=== PATIENT | female | born 1995 | race Caucasian/White ===

== ENCOUNTER 2025-01-01 20:59 | Emergency (ER) | payer BC, SELFPAY ==
--- OUTSIDE RECORDS SUMMARY | 2024-11-27 11:40 | XMS_ITS | Encounter Summary ---
Author Organization [facility] Address [address] [place] [address] Phone Care Team Providers Care Child Welfare Caseworker Name Role Phone Greg Fontaine CLOTH BALER Primary Care Provider Unavaila ble Reason for Visit * Reason Comments Hypothyroidism Encounter Details Date Type Department Care Team (Late st Contact Info) Description 11/27/2024 9:40 AM [facility] Office Visit [facility] [address] [place] [address] Melissa Bueno FNP [address] [place], [place] [id number] Other specified hypothyroidism (Primary Dx) Social History Tobacco Use Types Packs/Day Years Used Date Smoking Tobacco: Never Smokeless Tobacco: Never Tobacco Cessation:Counseling Given: Not Answered Alcohol Use Standard Drinks/Week Comments Never 0 (1 standard drink = 0.6 oz pur e alcohol) Humiliation, Afraid, Rape, and Kick questionnair e Answer Date Recorded Within the last year, have y ou been afraid of your partner or ex-partner? No 07/16/2024 Within the last year, have y ou been humiliated or emotionally abused in other ways by your partner or ex-partner? No Within the last year, have y ou been kicked, hit, slapped, or otherwise physically hurt by your partner or ex-partner? No 07/16/2024 Within the last year, have y ou been raped or forced to have any kind of sexual activity by your partner or ex-partner? No 07/16/2024 AUDIT-C Answer Date Recorded Q1: How often do you have a drink containing alcohol? Never 07/16/2024 Q2: How many drinks containi ng alcohol do you have on a typical day when you are drinking? Patient does not drink Q3: How often do you have si x or more drinks on one occasion? Never 07/16/2024 PHQ-2 Answer Date Recorded Patient Health Questionnaire-2 Score 0 11/12/2024 PHQ-9 Answer Date Recorded Patient Health Questionnaire-9 Score 1 11/12/2024 Housing Stability Vital Sign Answer Ross e Recorded In the last 12 months, was t here a time when you were not able to pay the mortgage or rent on time? No 07/16/2024 In the past 12 months, how m any times have you moved where you were living? 0 07/16/2024 At any time in the past 12 m [place], were you homeless or living in a group home (including now)? No 07/16/2024 Comments No Sex and Gender Information Value Date Recorded Sex Assigned at Female 11/16/2022 10:35 AM MST Legal Sex Female 10:08 AM MST Gender Identity Female 11/16/2022 10:35 AM MST Sexual Orientation Straight 11/16/2022 10 :35 AM MST documented as of this encounter Progress Notes * Melissa Bueno, CLOTH BALER - 11/27/2024 9:40 AM MST Subjective Patient ID: Ashely Hamilton is a 28 y.o. female who presents for Hypothyroidism. Attestation Ambient Consent : Patient/Guardian agrees to audio recording of this encounter for the purposes of computer assisted note taking and documentation. HPI History of Present Illness Presents via to request medication refills. Needs refill on Levothyroxine, currently taking 50 mcg daily. Labs have been stable. Denies any other concerns. Review of Systems Objective Visit Vitals LMP 11/23/2024 (Approximate) OB Status Having periods Smoking Status Never Physical Exam Constitutional: General: She is not in acute distress. Appearance: Normal appearance. Pulmonary: Effort: Pulmonary effort is normal. Comments: Speaking in full & clear sentences without any visible respiratory distress. Neurological: Mental Status: She is alert and oriented to person, place, and time. Mental status is at baseline. Psychiatric: Mood and Affect: Mood normal. Behavior: Behavior normal. Thought Content: Thought content normal. Assessment/Plan Diagnoses and associated orders for this visit: 1. Other specified hypothyroidism Assessment & Plan: Thyroid condition is stable at goal Last TSH: 1.02 on 07/16/2024. Continue current medications: Levothyroxine 50 mcg daily Monitor labs once a year unless new symptoms arise. Orders: - levothyroxine (Synthroid, Levoxyl) 50 MCG tablet; Take ONE tablet by mouth every day. Assessment/Plan No follow-ups on file. Telemedicine Attestation Statements Provider Location: [facility] Patient Location: [facility] visit type: Video I attest that I am at a secure, dedicated location for this telemedicine visit. The patient verbally consents to receiving health care via telehealth and understands the risks and benefits. Visit Duration: 0s documented in this encounter Miscellaneous Notes * Assessment & Plan Note - RENEE Berry - 11/27/2024 9:50 AM MSTAssociated Problem(s): Other specified hypothyroidism Thyroid condition is stable at goal Last TSH: 1.02 on 07/16/2024. Continue current medications: Levothyroxine 50 mcg daily Monitor labs once a year unless new symptoms arise. documented in this encounter Plan of Treatment Upcoming Encounters Date Type Department Care Team (Late st Contact Info) Description 01/07/2025 11:30 AM MST [facility] Visit [facility] [address] [place] [address] Pauly Holguin PMHNP [address] [place] [address] documented as of this encounter Visit Diagnoses Diagnosis Other specified hypothyroidism- Primary documented in this encounter Additional Health Concerns Assessment Noted Time PHQ-9 Depression Total Score: 1 11/13/19 25 12:15 PM MST documented as of this encounter Care Teams Child Welfare Caseworker Relationship Specialty Start Date End Date Greg Fontaine FNP PCP - General 07/18/24 11/28/24 documented as of this encounter
[2025-01-01 21:17] VITALS: BP 124/67; PULSE 82; RESP 18; TEMP 37; O2SAT 100; BMI 23.7
--- OUTSIDE RECORDS SUMMARY | 2025-01-01 21:53 | XMS_ITS | Clinical Summary ---
Author Organization [facility] Address [address] [place] [address] Phone Care Team Providers Care Loader Unloader Name Role Phone Melissa Bueno RENEE Primary Care Provider [phone] Allergies Active Allergy Reactions Criticality Noted Date Comments Ambrosia Artemisiifolia (Ragweed) Skin Test Itching,Shortness of breath High 08/09/2022 Haloperidol Swelling High 03/25/2022 Throat swelling Mixed Ragweed Itching 07/16/2024 Medications Multiple Vitamins-Minerals (Multi Adult Gummies) chewable tablet Active cetirizine (ZyrTEC) 10 MG tablet Take by mouth every day. Active Cholecalciferol (Vitamin D) 50 MCG (1999 UT) capsule Ac tive docusate sodium (Stool Softener) 250 MG capsule Activ e lamoTRIgine (LaMICtal) 200 MG tabletIndications: Bipolar 1 disorder, depressed, full remission (CMS/HCC) (HCC) (CMS/HCC) Take ONE tablet by mouth 2 (two) times every day in the morning and in the evening. 60 tablet 3 5 03/12/20 25 Active Turmeric (QC TUMERIC COMPLEX PO) Active levothyroxine (Synthroid, Levoxyl) 50 MCG tabletIndications: Other specified hypothyroidism Take ONE tablet by mouth every day. 90 tablet 2 5 11/28/19 26 Active ARIPiprazole (Abilify) 10 MG tabletIndications: Bipolar 1 disorder, depressed, full remission (CMS/HCC) (HCC) (CMS/HCC) Take ONE tablet by mouth every night at bedtime. 30 tablet 3 5 04/17/20 25 Active Abilify 10 MG tabletIndications: Bipolar 1 disorder, depressed, full remission ([facility]) ([facility]) ([facility]) Take ONE tablet by mouth every night at bedtime. 30 tablet 3 5 12/19/19 25 Discontin ued(Other ) Active Problems Problem Noted Date Diagnosed Date Bipolar 1 disorder, depresse d, full remission ([facility]) ([facility]) 07/16/2024 Assessment & Plan (11/12/2024 1:21 PM [facility]): Ashely Haimlton is a 28 y.o. female with a history of Bipolar DO. Current presentation is diagnostically consistent with Bipolar 1 DO, in full remission. Last episode Jun 2023. History of sleep deficit (~2hrs/night) x ~ 5 days, talkative/pressured speech, disorganized thoughts, and risk taking behaviors, has required hospitalization twice for re-stabilization. Currently stable on Lamotrigine 200mg BID and Abilify 10mg at bedtime for Bipolar DO. Risks vs benefits discussed. Education provided. Will continue at this time. -Discussed risk of rash (mago's johnsons), Patient denies S/Sx of rash. Patient understands the importance of medication compliance and if misses 1-2 days in a row will need to restart medication. --During 1st was on Lamotrigine 200mg BID and Abilify 5mg. No complications with . --- Provided patient [id number] fact sheets for both Lamotrigine and Abilify as patient may consider in the future. Condition is Stable Continue current prescribed medications Condition will be reassessed plan; follow-up 2 weeks/4weeks/3months: at the next regular appointment Assessment & Plan (07/16/2024 3:02 PM [facility]): - Current medications include Abilify, Lamotrigine, and [place]. - Patient is interested in transferring mental health services to this practice. - Referral to [facility] will be processed for continued psychiatric care. Other specified hypothyroidism 09/15/2022 Assessment & Plan (11/27/2024 9:50 AM [facility]): Thyroid condition is stable at goal Last TSH: 1.02 on 07/16/2024. Continue current medications: Levothyroxine 50 mcg daily Monitor labs once a year unless new symptoms arise. Assessment & Plan (07/16/2024 3:02 PM [facility]): - Continue Levothyroxine 50 mcg daily. - Patient will have labs drawn today to assess thyroid function. - Will order a one-month supply of Levothyroxine pending lab results. Resolved Problems Problem Noted Date Diagnosed Date Resolved Date Chorioamnionitis 01/31/2023 11/27/2024 (normal spontaneous vaginal delivery) 01/30/2023 11/27/2024 Encounters Date Type Department Care Team Description 12/18/2024 Orders Only [facility] [address] [place] [phone] Pauly Holguin PMHNP Bipolar 1 disorder, depressed, full remission (CMS/HCC) (HCC) (CMS/HCC) (Primary Dx) 11/27/2024 9:40 AM [facility] Office Visit [address] [place] [address] Melissa Bueno, RENEE Other specified hypothyroidism (Primary Dx) 11/27/2024 Travel 11/12/2024 12:30 PM [facility] Office Visit [facility] [place] [phone] Pauly Holguin PMHNP Bipolar 1 disorder, depressed, full remission (CMS/HCC) (HCC) (CMS/HCC) (Primary Dx) 11/12/2024 Travel 11/12/2024 Telephone [facility] [address] [place] [phone] Ariadna Parnell -COOR OF CARE from Last 3 Months Immunizations Immunization Administration Dates Next Due Tdap 11/09/2022 Social History Tobacco Use Types Packs/Day Years [...] any time in the past 12 m [facility], were you homeless or living in a jail (including now)? No 07/16/2024 Comments No Sex and Gender Information Value Date Recorded Sex Assigned at Female 11/16/2022 10:35 AM [facility] Legal Sex Female 10:08 AM [facility] Gender Identity Female 11/16/2022 10:35 AM [facility] Sexual Orientation Straight 11/16/2022 10 :35 AM [facility] Last Filed Vital Signs Vital Sign Reading Time Taken Comments Blood Pressure 110/70 07/16/2024 2:17 PM [facility] Pulse 81 07/16/2024 2:17 PM [facility] Temperature 37.2 C (98.9 F) 07/16/2024 2:17 PM MST Respiratory Rate - - Oxygen Saturation 98% 07/16/2024 2:17 PM MST Inhaled Oxygen Concentration - - Weight 62.6 kg (137 lb 14.4 oz) 07/16/2024 2:17 PM [facility] Height 162.6 cm (5' 4) 07/16/2024 2:17 PM MST Body Mass Index 23.67 07/16/2024 2:17 PM [facility] Plan of Treatment Upcoming Encounters Date Type Department Care Team (Late st Contact Info) Description 01/07/2025 11:30 AM [facility] Office Visit [facility] [address] [place] [address] Pauly Holguin, PMHNP [address] [place] [address] Health Maintenance Due Date Last Done Comments Hepatitis C Screening 12/07/2015 COVID-19 Vaccine (2023-2 5 season) 2024 Influenza Vaccine (Season Ended) 2025 Annual Preventive Visit 07/16/2025 07/16/2024 RPR Screening 07/16/2025 07/16/2024, 01/29/2023 Pap Smear 08/09/2025 08/09/2022 DTaP/Tdap/Td Vaccines (2 - T d or Tdap) 11/09/2032 11/09/2022 HIV Screening Completed 08/09/2022 Tobacco Screening Completed 11/27/2024 HIB Vaccines Aged Out No longer eligi ble based on patient's age to complete this topic IPV Vaccines Aged Out No longer eligi ble based on patient's age to complete this topic Meningococcal B Vaccine Aged Out No l onger eligible based on patient's age to complete this topic Meningococcal Vaccine Aged Out No ginny joyce eligible based on patient's age to complete this topic Rotavirus Vaccines Aged Out No longer eligible based on patient's age to complete this topic Procedures Procedure Name Priority Date/Time Associated Diagnosis Comments RPR SCREEN W/RFX TITER & TPPA Routine 07/16/2024 2:57 PM [facility] Routine screening for STI (sexually transmitted infection) from Last 3 Months or Most Recently Relevant to Health Maintenance Results * RPR Screen w/rfx Titer & TPPA (07/16/2024 2:57 PM MST) RPR Nonreactive Nonreactive 07/17/2024 9:49 PM [facility] [employer] [place] Blood Venous blood / Unknown Venipuncture / Unknown 07/16/2024 2:57 PM MST 07/16/2024 2:57 PM MST Narrative KEVIN BELLO ([place]LETTE) - 07/17/2024 9:49 PM MST Fasting: No Performing Organization Information: Site ID: [id number] Name: [facility] Address: [address] [place] [address] Director: Nita Burgess us Greg Fontaine [facility] BLOOD ORDERABLES Final Resu lt [facility] [email or web address] [address] [place] [address], [employer] [place] [address] [place] [address], from Last 3 Months or Most Recently Relevant to Health Maintenance Insurance [facility] Care Teams Loader Unloader Relationship Specialty Start Date End Date Melissa Bueno FNP [address] [place], [place] [id number] PCP - General 11/29/24 07/10/99
--- OUTSIDE RECORDS SUMMARY | 2025-01-01 21:53 | XMS_ITS | Clinical Summary ---
Author Organization [facility] r Address [address] [place] [address] Care Team Providers Care Monkey Trainer Name Role Phone Pcp, Pcp - No MD Primary Care Provider Unavailab le Allergies No known active allergies Medications lamoTRIgine (LAMICTAL) 200 MG tablet Take 200 mg by mouth twice a day. 01/06/2023 Active cholecalciferol (VITAMIN D3) 25 MCG (1000 UT) tablet Take 25 mcg by mouth. 03/25/2022 Active levothyroxine (SYNTHROID, LEVOTHROID) 25 MCG tabletIndication s: (normal spontaneous vaginal delivery) Take 1 tablet by mouth one-half hour before breakfast. 30 tablet 02/01/2023 Active Active Problems Problem Noted Date Diagnosed Date Chorioamnionitis 01/31/2023 01/3001/30/2023 Social History Tobacco Use Types Packs/Day Years Used Date Smoking Tobacco: Never Smokeless Tobacco: Never Tobacco Cessation:Counseling Given: Not Answered Utilities Answer Date Recorded In the past 12 months has e Trove, gas, oil, or water [employer] threatened to shut off services in your home? No 01/29/2023 PHQ-2 Answer Date Recorded PHQ-2 Score 0 02/07/2023 Hunger Vital Sign Answer Date Recorded Within the past 12 months, y ou worried that your food would run out before you got the money to buy more. Never true 01/30/20 23 Within the past 12 months, t he food you bought just didn't last and you didn't have money to get more. Never true 01/29/2023 PRAPARE - Transportation Answer Date Re corded In the past 12 months, has l ack of transportation kept you from medical appointments or from getting medications? No 01/09 In the past 12 months, has l ack of transportation kept you from meetings, work, or from getting things needed for daily living? No 01/29/2023 Housing Stability Vital Sign Answer Ross e Recorded In the last 12 months, was t here a time when you were not able to pay the mortgage or rent on time? No 01/29/2023 Number of Places Lived in the Last Year Not on f ile 01/29/2023 In the last 12 months, was t here a time when you did not have a steady place to sleep or slept in a fpc (including now)? No 01/29/2023 Domestic Violence Screen Answer Date Re corded Are you in a relationship in which you have been physically hurt? Unrecognized value 01/31/2023 Are you in a relationship in which you have been verbally threatened or felt emotionally controlled? Unrecognized value 01/31/2023 Comments No Sex and Gender Information Value Date Recorded Sex Assigned at Female 01/28/2023 7:04 PM [facility] Legal Sex Female 6:37 PM MST Gender Identity Female 01/28/2023 7:04 PM MST Sexual Orientation Not on file Last Filed Vital Signs Vital Sign Reading Time Taken Comments Blood Pressure 96/59 01/31/2023 12:24 PM MST Pulse 73 01/31/2023 12:24 PM MST Temperature 36.8 C (98.2 F) 01/31/2023 12:24 PM MST Respiratory Rate 18 01/31/2023 12:24 PM MST Oxygen Saturation 98% 01/31/2023 12:24 PM MST Inhaled Oxygen Concentration - - Weight 81 kg (178 lb 9.2 oz) 01/29/2023 8:40 PM MST Height 162.6 cm (5' 4) 01/29/2023 8:40 PM MST Body Mass Index 30.65 01/29/2023 8:40 PM MST Plan of Treatment Health Maintenance Due Date Last Done Comments Hepatitis B (1 of 3 - 19+ 3- dose series) 2016 Cervical Cancer Screen Stand malina 3 Year Repeat 2018 COVID-19 Vaccine ( - 2023-2 5 season) 2024 Depression Screening 07/11/2024 Influenza (Season Ended) 2025 DTaP/Tdap/Td (2 - Td or Tdap) 11/09/2032 11/09/2022 RSV Vaccines (1 - 1-dose 75+ series) 2072 HPV(Human Papilloma Virus) Aged Out N o longer eligible based on patient's age to complete this topic Hepatitis A Aged Out No longer eligi ble based on patient's age to complete this topic Pneumococcal <50 yr Aged Out No longe r eligible based on patient's age to complete this topic Insurance [facility] MEDICA Advance Directives For more information, please contact: [phone] * Full Code (Latest Code Status on File) Date Activated Date Inactivated Comments 01/30/2023 4:54 PM 01/31/2023 7:06 PM * Full Code Date Activated Date Inactivated Comments 01/29/2023 8:46 PM 01/30/2023 4:54 PM Care Teams Monkey Trainer Relationship Specialty Start Date End Date Pcp, Pcp - Linda, PCP - General 01/29/23
--- OUTSIDE RECORDS SUMMARY | 2025-01-01 21:53 | XMS_ITS | Encounter Summary ---
Author Organization [facility] Address [address] [place] [address] Phone Care Team Providers Care Body Art Technician Name Role Phone Melissa Bueno RENEE Primary Care Provider [phone] Encounter Details Date Type Department Care Team (Late st Contact Info) Description 12/18/2024 Orders Only [facility] [address] [place] [address] Pauly Holguin, PMHNP [address] [place] [address] Bipolar 1 disorder, depressed, full remission (CMS/HCC) (HCC) (CMS/HCC) (Primary Dx) Social History Tobacco Use Types Packs/Day Years Used Date Smoking Tobacco: Never Smokeless Tobacco: Never Alcohol Use Standard Drinks/Week Comments Never 0 [...] any time in the past 12 m [facility], were you homeless or living in a penitentiary (including now)? No 07/16/2024 Comments No Sex and Gender Information Value Date Recorded Sex Assigned at Female 11/16/2022 10:35 AM MST Legal Sex Female 10:08 AM MST Gender Identity Female 11/16/2022 10:35 AM MST Sexual Orientation Straight 11/16/2022 10 :35 AM MST documented as of this encounter Plan of Treatment Upcoming Encounters Date Type Department Care Team (Late st Contact Info) Description 01/07/2025 11:30 AM [facility]ST Office Visit [facility] [address] [place] [address] Pauly Holguin, LISAHNP [address] [place] [address] documented as of this encounter Visit Diagnoses Diagnosis Bipolar 1 disorder, depressed, full remission (CMS/HCC) (HCC) (CMS/HCC)- Primary documented in this encounter Additional Health Concerns Assessment Noted Time PHQ-9 Depression Total Score: 1 11/13/19 25 12:15 PM MST documented as of this encounter Care Teams Body Art Technician Relationship Specialty Start Date End Date Melissa Bueno FNP [address] [place] [address] PCP - General 11/29/24 07/10/99 documented as of this encounter
--- OUTSIDE RECORDS SUMMARY | 2025-01-01 21:53 | XMS_ITS | Encounter Summary ---
Author Organization [facility] Address [address] [place] [address] Phone Care Team Providers Care Maintenance Mgr Name Role Phone Greg Fontaine Primary Care Provider Judy francis Encounter Details Date Type Department Care Team (Latest Contact Info) Description 11/27/2024 Travel Social History Tobacco Use Types Packs/Day Years [...] any time in the past 12 m [facility], were you homeless or living [...] MST Office Visit [facility] [address] [place] [phone] Pauly Holguin, PMHNP [address] [place] [address] documented as of this encounter Visit Diagnoses Not on filedocumented in this encounter Additional Health Concerns Assessment Noted Time PHQ-9 Depression Total Score: 1 11/13/19 25 12:15 PM MST documented as of this encounter Care Teams Maintenance Mgr Relationship Specialty Start Date End Date Greg Fontaine FNP PCP - General 07/18/24 11/28/24 documented as of this encounter
[2025-01-01 22:00] LABS: Basophils Absolute Auto 0.01 K/uL (0.00-0.30); Basophils Percent Auto 0.1 % (0.0-3.0); Eosinophils Absolute Auto 0.26 K/uL (0.00-0.50); Eosinophils Percent Auto 3.5 % (0.0-7.0); Hematocrit 38.2 % (33.0-51.0); Hemoglobin* 12.7 gm/dL (12.0-16.0); Lymphocytes Absolute Auto 2.27 K/uL (0.90-2.90); Lymphocytes Percent Auto 30.8 % (20-44); Mean Corpuscular HGB Conc 33 gm/dL (32-36); Mean Corpuscular Hemoglobin 30 pg (26-34); Mean Corpuscular Volume 90 fL (80-100); Monocytes Percent Auto 9.2 % (0.0-11.0); Neutrophils Absolute Auto 4.14 K/uL (1.7-7.0); Neutrophils Percent Auto 56.4 % (42.0-72.0); Platelet Count* 223 K/uL (140-440); RDW Coefficient of Variation % 12.6 % (11.5-15.5); Red Blood Count 4.23 m/uL (4.00-5.20); Slide Review Reflex No; White Blood Count* 7.36 K/uL (4.50-11.00)
[2025-01-01 23:47] VITALS: BP 98/66; PULSE 62; RESP 16; O2SAT 99
--- NOTE | 2025-01-01 23:51 | ED.PREGNANCY ---
HPI - General Chief complaint: Vaginal Bleeding Stated complaint: Possible miscarriage, 1 month Time Seen by Provider: 01/01/25 21:20 History of Present Illness HPI Narrative: This 29-year-old female comes in reporting that she is about 4 weeks and now starting today as had vaginal bleeding and abdominal pain. She wonders if she is having a miscarriage. She does report some pain in her left abdomen also. This is her 2nd . She has a child at home. Related Data Home Medications ?Medication ?Instructions ?Recorded ?Confirmed aripiprazole 10 mg tablet (Abilify) 10 mg PO QHS 01/01/25 01/01/25 lamotrigine 200 mg tablet 200 mg PO BID 01/01/25 01/01/25 (Lamictal) levothyroxine 50 mcg capsule 50 mcg PO DAILY 01/01/25 01/01/25 Review of Systems Status of ROS: Reports: 10 or more systems reviewed and unremarkable except as noted in History and below Narrative: Constitutional: No fevers, no weight gain or loss. Eyes: No discharge. No vision changes. HENT: No congestion, no sore throat, no ear pain. Cardiovascular: No chest pain, no palpitations. Respiratory: No shortness of breath, no wheezes, no cough. Gastrointestinal: No vomiting, no diarrhea. Left-sided abdominal pain. Genitourinary: No dysuria, no hematuria. Musculoskeletal: Normal range of motion. Skin: No rashes, no pruritis. Neurological: No dizziness, weakness, sensory change, speech change. Endo/Heme/Allergies: No bruising or bleeding. No polydipsia. Pysch: no suicidality, no anxiety, no insomnia. All other systems reviewed and are negative. PFSH PFS Social History Smoking Status: Never smoker How often do you have a drink containing alcohol: never AUDIT-C Alcohol total score: 0 Non-prescribed substance use: denies use Exam Narrative: Exam Narrative: Constitutional: Well-developed, well-nourished, no acute distress. HEENT: Normocephalic, atraumatic. Neck: Normal range of motion. Nontender. Supple. Heart: Regular. No murmurs. Normal rate. Intact distal pulses. Lungs: Clear to auscultation. No chest discomfort. No wheezes, rhonchi, or rales. Abdomen: Normal bowel sounds. No rebound tenderness. Genitalia: Deferred. Back: No midline tenderness. Normal range of motion. Extremities: Normal range of motion. No injury. Skin: Intact. No rash. Warm. No erythema or pallor. Neurologic: No altered sensation. No weakness. Alert and oriented. Psychiatric: No suicidality. No anxiety or depression. No insomnia. Nursing notes and vitals signs are reviewed. Const: Vital Signs, click to edit/add: Vital Signs - 24 hr 01/01/25 21:17 01/01/25 23:47 Temperature 98.6 F Pulse Rate [Right Pulse Oximeter] 82 62 Respiratory Rate 18 16 Blood Pressure [Ri ght Upper Arm] 124/67 98/66 Pulse Oximetry 100 99 Oxygen Delivery Me thod Room Air Room Air Course Vital Signs Vital signs: Initial Vital Signs Temperature 98.6 F 01/01/25 21:17 Temperature Source Temporal Artery Scan 01/01/25 21:17 Pulse Rate 82 01/01/25 21:17 Respiratory Rate 18 01/01/25 21:17 Blood Pressure 124/67 01/01/25 21:17 Blood Pressure Mean 86 01/01/25 21:17 Blood Pressure Position Sitting 01/01/25 21:17 Pulse Oximetry 100 01/01/25 21:17 Oxygen Delivery Method Room Air 01/01/25 21:17 Vital Signs Temperature 98.6 F 01/01/25 21:17 Pulse Rate 82 01/01/25 21:17 Respiratory Rate 18 01/01/25 21:17 Blood Pressure 124/67 01/01/25 21:17 Pulse Oximetry 100 01/01/25 21:17 Oxygen Delivery Method Room Air 01/01/25 21:17 Temperature 98.6 F 01/01/25 21:17 Pulse Rate 62 01/01/25 23:47 Respiratory Rate 16 01/01/25 23:47 Blood Pressure 98/66 01/01/25 23:47 Pulse Oximetry 99 01/01/25 23:47 Oxygen Delivery Method Room Air 01/01/25 23:47 MDM - OB/Uterine Contractions MDM Narrative Medical decision making narrative: This patient states that she thinks she is about 4 weeks and comes in with significant vaginal bleeding and abdominal cramping. She does have normal vital signs. Labs are acquired which show a reassuring hemoglobin at 12.7. Her beta hCG level is returning at almost 19,000 which would be appropriate for somewhere between 4 and 6 weeks gestation. An ultrasound is ordered for further evaluation and of course to rule out the possibility of an ectopic . This procedure is yet to occur at the end of my shift so the oncoming physician will look after results and proceed accordingly. Lab Data Labs: Lab Results 01/01/25 Range/Units 21:48 WBC 7.36 (4.50-11.00) K/uL RBC 4.23 (4.00-5.20) m/uL Hgb 12.7 (12.0-16.0) gm/dL Hct 38.2 (33.0-51.0) % MCV 90 (80-100) fL MCH 30 (26-34) pg MCHC 33 (32-36) gm/dL RDW Coeff of Adolfo 12.6 (11.5-15.5) % Plt Count 223 (140-440) K/uL Neut % (Auto) 56.4 (42.0-72.0) % Lymph % (Auto) 30.8 (20-44) % [place] % (Auto) 9.2 (0.0-11.0) % Eos % (Auto) 3.5 (0.0-7.0) % Baso % (Auto) 0.1 (0.0-3.0) % Neut # (Auto) 4.14 (1.7-7.0) K/uL Lymph # (Auto) 2.27 (0.90-2.90) K/uL [place] # (Auto) 0.70 (0.00-0.90) K/UL Eos # (Auto) 0.26 (0.00-0.50) K/uL Baso # (Auto) 0.01 (0.00-0.30) K/uL Abs Immat Gran (auto) 0.00 (0.00-0.30) K/uL Imm/Tot Granulo (auto) 0.0 % HCG, Quant 37957.00 mIU/mL Discharge Plan Discharge Clinical Impression: Vaginal bleeding, Abdominal pain during Prescriptions: No Action lamotrigine [Lamictal] 200 mg tablet 200 mg PO BID levothyroxine 50 mcg capsule 50 mcg PO DAILY aripiprazole [Abilify] 10 mg tablet 10 mg PO QHS Follow Up/Referrals: Provider,Not a Local [Primary Care Provider, Family Practice]
[2025-01-02 02:00] VITALS: BP 94/56; PULSE 63; RESP 16; TEMP 36.7; O2SAT 99
--- NOTE | 2025-01-02 12:05 | CRLHL7_ITS ---
For Patients: As a result of the Cures Act, medical imaging exams and procedure reports are released immediately into your electronic medical record. You may view this report before your referring provider. If you have questions, please contact your health care provider. INDICATION: Bleeding, pain. TECHNIQUE: Ultrasound OB pelvis transabdominal and transvaginal. Real-time oh-scale imaging of the pelvis was performed. COMPARISON: None. FINDINGS: There is a single intrauterine gestation. The embryo demonstrates a regular cardiac rate measuring 90 beats per minute. The embryo`s crown rump length measurement of 0.3 cm corresponds to a gestational age of 5 weeks, 6 days with a sonographic due date of August 29, 2025. There is a normal appearing yolk sac. There are no gross abnormalities noted within the embryo at this early state of development. The placenta has not yet developed. Small 3.3 centimeter subchorionic hemorrhage. The ovaries are of normal size. Incidental 2.2 centimeter probable left corpus luteal cyst. Small volume free fluid in the cul-de-sac. IMPRESSION: Single viable intrauterine with gestational age of 5 weeks, 6 days based on crown-rump length. No abnormalities seen. Incidental 2.2 centimeter probable left corpus luteal cyst. Small 3.3 centimeter subchorionic hemorrhage. Recommend continued gym teacher follow-up and short-term follow-up ultrasound as clinically indicated. Dictated by Román Lyles MD @ 01/02/2025 12:49:26 AM (Electronically Signed)
== END 2025-01-02 02:08 | disposition home or self-care (01) ==
PROVIDERS: Emergency Medicine Emergency Medical Services; Emergency Provider Family Medicine
DX: O46.8X1 Other antepartum hemorrhage, first trimester (principal)
CPT/HCPCS: 36415; 76817; 84702; 85025; 86900; 86901; 99284; J2791